=== PATIENT | female | born 1975 | race Caucasian/White ===

== ENCOUNTER 2017-01-30 17:54 | Observation (INO) | payer OTHER ==
[2017-01-30] MEDS ORDERED: MILK OF MAGNESIA PO PRN (20:21)
[2017-01-30] MEDS ORDERED: MOTRIN TAB 800 MG PO PRN (20:21)
[2017-01-30] MEDS ORDERED: MAALOX or MYLANTA PO PRN (20:21)
[2017-01-30] MEDS ORDERED: KAOPECTATE (NEW FORMULA) PO PRN (20:21)
[2017-01-30 20:47] LABS: BASOPHILS # (AUTO) 0.1 X10^3/uL (0.0-0.1); BASOPHILS % (AUTO) 1.4 % (0.2-1.0); EOSINOPHILS % (AUTO) 0.2 % (0.9-2.9); HEMATOCRIT 38.4 % (36.0-47.0); HEMOGLOBIN 13.9 g/dL (12.0-16.0); LYMPHOCYTES # (AUTO) 1.5 X10^3/uL (1.3-2.9); LYMPHOCYTES % (AUTO) 17.9 % (21.0-51.0); MEAN CORPUSCULAR HEMOGLOBIN 41.5 pg (27.0-34.0); MEAN CORPUSCULAR HGB CONC 36.2 g/dL (33.0-35.0); MEAN CORPUSCULAR VOLUME 114.7 fL (80.0-100.0); MEAN PLATELET VOLUME 8.7 fL (7.4-11.0); MONOCYTES # (AUTO) 0.9 x10^3/uL (0.3-0.8); MONOCYTES % (AUTO) 10.9 % (0.0-13.0); NEUTROPHILS # (AUTO) 5.8 x10^3/uL (2.2-4.8); NEUTROPHILS % (AUTO) 69.6 % (42.0-75.0); PLATELET COUNT 169 X10^3/uL (150.0-450.0); RED BLOOD COUNT 3.35 X10^6/uL (3.5-5.4); RED CELL DISTRIBUTION WIDTH 15.2 % (11.6-16.5); WHITE BLOOD COUNT 8.3 X10^3/uL (3.6-10.0)
[2017-01-30 21:03] LABS: ALANINE AMINOTRANSFERASE 56 Units/L (12-78); ALBUMIN 3.2 g/dL (3.4-5.0); ALKALINE PHOSPHATASE 127 Units/L (46-116); ASPARTATE AMINO TRANSFERASE 106 Units/L (15-37); BLOOD ALCOHOL 188 mg/dL (0-19.9); BLOOD UREA NITROGEN 8 mg/dL (7-18); CALCIUM 8.2 mg/dL (8.5-10.1); CARBON DIOXIDE 28.8 mmol/L (21-32); CHLORIDE 96 mmol/L (98-107); COR CA(FOR HYPOALB) 8.8 mg/dL (8.5-10.1); COR NA(FOR HYPERGLY) 136 mmol/L (136-145); GLUCOSE 122 mg/dL (65-99); MAGNESIUM 1.5 mg/dL (1.7-2.9); SODIUM 135 mmol/L (136-145); eGFR BLACK RACES > 60 (>60); eGFR NON BLACK RACES > 60 (>60)
[2017-01-30] MEDS ORDERED: POTASSIUM CHLORIDE LIQ 20 MEQ UDC PO PRN (21:21)
[2017-01-30] MEDS ORDERED: K-LYTE EFFERVESCENT PO PRN (21:21)
[2017-01-30] MEDS ORDERED: K-DUR TAB 20 MEQ PO PRN (21:21)
[2017-01-30] MEDS ORDERED: K-RIDER 10 MEQ/NS 100 ML 10 MEQ/100 ML BAG IV PRN (21:21)
[2017-01-30 21:22] LABS: PLATELET MORPHOLOGY COMMENT NORMAL (NORMAL)
[2017-01-30 21:23] LABS: ANISOCYTOSIS 1+
[2017-01-30 21:41] VITALS: BMI 26.3
[2017-01-30 22:00] LABS: BILIRUBIN,URINE NEGATIVE (NEGATIVE); BLOOD/HEMOGLOBIN,URINE NEGATIVE (NEGATIVE); GLUCOSE, URINE NEGATIVE (NEGATIVE); KETONES,URINE NEGATIVE (NEGATIVE); LEUKOCYTE ESTERASE ,URINE NEGATIVE (NEGATIVE); NITRITES,URINE NEGATIVE (NEGATIVE); PROTEIN,URINE NEGATIVE (NEGATIVE); UROBILINOGEN,URINE 1+ (NORMAL)
[2017-01-30 22:08] LABS: APPEARANCE,URINE CLEAR (CLEAR); BACTERIA,URINE 1+ /HPF (NEGATIVE); COLOR,URINE YELLOW (YELLOW); RBC,URINE NONE SEEN /HPF (NEGATIVE); SQUAMOUS EPITHELIAL CELL,UR FEW /HPF (NEGATIVE)
[2017-01-30] MEDS ORDERED: PATIENT'S HOME MEDICATION (Dicyclomine Hcl [Dicyclomine Hcl] 1 TAB) PO PRN (23:01)
[2017-01-30] MEDS ORDERED: BENTYL CAP 10 MG PO PRN (23:07)
[2017-01-30] MEDS: NS 1000 ML 1,000 ML IV SCH (23:12)
[2017-01-30] MEDS ORDERED: PHENERGAN INJ 25 MG IVP PRN (23:22)
[2017-01-30] MEDS ORDERED: ZOFRAN INJ 4 MG VIAL IVP PRN (23:22)
[2017-01-30] MEDS: AMBIEN PO SCH (23:30)
[2017-01-30] MEDS: MAGNESIUM SULFATE 50% INJ IM SCH (23:32)
[2017-01-31] MEDS: MAGNESIUM SULFATE 50% INJ IM SCH ×3 (05:02→21:30)
[2017-01-31 06:17] LABS: BASOPHILS # (AUTO) 0.1 X10^3/uL (0.0-0.1); BASOPHILS % (AUTO) 0.8 % (0.2-1.0); EOSINOPHILS # (AUTO) 0.1 x10^3/uL (0.0-0.2); EOSINOPHILS % (AUTO) 1.5 % (0.9-2.9); HEMOGLOBIN 12.9 g/dL (12.0-16.0); LYMPHOCYTES # (AUTO) 1.5 X10^3/uL (1.3-2.9); LYMPHOCYTES % (AUTO) 19.7 % (21.0-51.0); MEAN CORPUSCULAR HEMOGLOBIN 41.7 pg (27.0-34.0); MEAN CORPUSCULAR HGB CONC 35.8 g/dL (33.0-35.0); MEAN CORPUSCULAR VOLUME 116.4 fL (80.0-100.0); MEAN PLATELET VOLUME 9.1 fL (7.4-11.0); MONOCYTES # (AUTO) 0.7 x10^3/uL (0.3-0.8); MONOCYTES % (AUTO) 9.5 % (0.0-13.0); NEUTROPHILS # (AUTO) 5.2 x10^3/uL (2.2-4.8); NEUTROPHILS % (AUTO) 68.5 % (42.0-75.0); PLATELET COUNT 150 X10^3/uL (150.0-450.0); RED BLOOD COUNT 3.09 X10^6/uL (3.5-5.4); RED CELL DISTRIBUTION WIDTH 15.4 % (11.6-16.5); WHITE BLOOD COUNT 7.5 X10^3/uL (3.6-10.0)
[2017-01-31 06:43] LABS: ALANINE AMINOTRANSFERASE 50 Units/L (12-78); ALBUMIN 2.9 g/dL (3.4-5.0); ALKALINE PHOSPHATASE 116 Units/L (46-116); ASPARTATE AMINO TRANSFERASE 108 Units/L (15-37); BLOOD UREA NITROGEN 8 mg/dL (7-18); CALCIUM 8.2 mg/dL (8.5-10.1); CARBON DIOXIDE 27.5 mmol/L (21-32); CHLORIDE 101 mmol/L (98-107); COR CA(FOR HYPOALB) 9.1 mg/dL (8.5-10.1); CREATININE 0.58 mg/dL (0.55-1.02); GLUCOSE 71 mg/dL (65-99); MAGNESIUM 1.9 mg/dL (1.7-2.9); SODIUM 139 mmol/L (136-145); TOTAL PROTEIN 6.4 g/dL (6.4-8.2); eGFR BLACK RACES > 60 (>60); eGFR NON BLACK RACES > 60 (>60)
[2017-01-31 06:44] LABS: PLATELET MORPHOLOGY COMMENT NORMAL (NORMAL)
--- NOTE | 2017-01-31 08:11 | RAD ---
HISTORY: Dehydration. Study: PA and lateral chest. Comparison: None. Findings: The trachea is midline. The cardiac silhouette is unremarkable. The lungs are clear without focal infiltrate or effusion. The bony thorax is unremarkable. IMPRESSION: 1. No acute cardiopulmonary disease. Reported By:
--- NOTE | 2017-01-31 08:27 | CT ---
HISTORY: Dehydration Study: CT abdomen and pelvis without contrast Comparison: None. Technique: Multiple axial images of the abdomen and pelvis were obtained from the lung bases to the pubic symph ysis without the administration of IV contrast. Dose reduction techniques including Automated Expos ure Control (AEC) and adjustment of mA and kV were utilized. Findings: The visualized portions of the lung bases are unremarkable. Hepatomegaly and diffuse fatty infiltrat ion of the liver. There are areas of focal fatty sparing. No suspicious liver masses. The spleen, p ancreas, kidneys, and adrenal glands are unremarkable in their CT appearance. The gallbladder is unr emarkable in its CT appearance. No significant mesenteric lymphadenopathy or stranding can be obser wendy. No free fluid or free air is seen within the abdomen. The large and small bowel are collapsed , but otherwise appear normal. The appendix is surgically absent. The uterus and ovaries appear nor mal. The urinary bladder is grossly unremarkable. The bony structures are grossly intact. IMPRESSION: 1. No CT evidence of acute abdominal/pelvic pathology. 2. Other chronic findings as above. Reported By:
[2017-01-31] MEDS ORDERED: PROTONIX INJ 40 MG VIAL IVP SCH (09:00)
[2017-01-31] MEDS: NEURONTIN CAP 300 MG PO SCH ×2 (09:13→21:29)
[2017-01-31] MEDS: THIAMINE HCL INJ IM SCH (09:15)
[2017-01-31] MEDS: NS 1000 ML 1,000 ML IV SCH ×2 (09:18→21:27)
[2017-01-31] MEDS: PEPCID 20 MG IV PREMIX* 20 MG/50 ML BAG IV SCH ×2 (10:44→21:28)
[2017-01-31] MEDS: LIBRIUM PO PRN (10:49)
[2017-01-31 11:46] LABS: AMYLASE 20 Units/L (25-115); LIPASE 243 Units/L (73-393)
--- NOTE | 2017-01-31 11:53 | DR.H&P ---
H&P - History & Physical for Day of: H&P Date: 01/30/17 - Chief Complaint Chief Complaint: Near Syncope, Weakness, Nausea/Vomiting - Allergies Allergies/Adverse Reactions: Allergies Allergy/AdvReac Type Severity Reaction Status Date / Time No Known Drug Allergies Allergy Unverified 01/30/17 18:15 - History of Present Illness History of Present Illness: The patient is a 41-year-old white female who presents to the clinic with complaint of feeling of weakness with nausea and vomiting for 3 days. Patient denies diarrhea. Patient states that she feels very weak and like she is about to pass out. Patient also states that she's not been able to keep any food down. Patient does have a strong history of alcohol abuse with using a pint a day. Patient states that she over the last 3 days has taking a shot here and there and does not feel like she is having DTs. Patient does continue to complain of having increased numbness to her feet. - Past Medical History Past Medical History: Anxiety Additional Medical History: PVD - Past Surgical History Surgical History: Appendectomy, CHIEF [employer]TER[employer]CHITECT Surgery - Family History Family Medical History: Diabetes Mellitus, Cancer, [place] - Social History Does patient currently use any type of tobacco product: No Have you used tobacco products in the last 12 months: No Type of Tobacco Use: None Alcohol Use: Heavy (1 pint per day), DAILY Drug Use: None - Medications Home Medications: Amitriptyline HCl [Amitriptyline HCl] 1 - 2 tab PO HS 01/30/17 [History Confirmed 01/30/17] Dicyclomine HCl 1 tab PO QID PRN 01/30/17 [History Confirmed 01/30/17] Gabapentin [NEURONTIN CAP 300 mg *] 1 cap PO BID 01/30/17 [History Confirmed ] Phentermine HCl 37.5 mg PO DAILY 01/30/17 [History Confirmed 01/30/17] - Review of Systems Constitutional: Weakness, Malaise Eyes: No Symptoms Reported ENT: No Symptoms Reported Respiratory: No Symptoms Reported Cardiovascular: No Symptoms Reported Gastrointestinal: No Symptoms Reported Genitourinary: No Symptoms Reported Musculoskeletal: No Symptoms Reported Skin: No Symptoms Reported Neurological: Numbness (to feet) - Physical Exam Vital Signs: Temperature 97.9 F Pulse Rate [Right Brachial] 98 Pulse Rate [Bilateral Radial] 95 Respiratory Rate 20 Blood Pressure [Right Arm] 128/82 O2 Sat by Pulse Oximetry 90 Oriented: Normal Eyes: Normal Ear: Normal Nose: Normal Throat: Normal Respiratory: Clear Throughout Cardiovascular: Normal : Normal Auscultation: Bowel Sounds: Normal Palpation: Normal Tenderness: Diffuse Skin: Normal Musculoskeletal: Normal Psychiatric: Anxiety Mood Description: Depressed Affect: Depressed Speech Pattern: Clear - Assessment/Plan (1) Near syncope Status: Acute Plan: CT Head. Labs, IVFs (2) Dehydration Status: Acute Plan: Labs, IVFs (3) Nausea & vomiting Qualifiers: Vomiting type: V Vomiting Intractability: V Status: Acute Plan: Labs, IVFs, Antiemetics (4) Alcohol abuse Status: Acute Plan: Monitor for DTs. Librium. (5) Hypokalemia Status: Acute Plan: Labs, Potassium replacement. (6) Hypomagnesemia Status: Acute Plan: Labs, Magnesium replacement.
[2017-01-31] MEDS ORDERED: LEVSIN/MAALOX/LIDOC VISC PO PRN (16:29)
--- NOTE | 2017-01-31 16:32 | PCM.PROG ---
Progress Note - Progress Note for Day of Date: 01/31/17 - Subjective Subjective: patient is a 41-year-old white female who was admitted one day ago with alcohol-induced gastritis abdominal pain and vomiting and diarrhea. Patient was noted to be dehydrated on admission with hypokalemia and hyponatremia. Patient started on PPI therapy and IV hydration. Patient had a CT scan of abdomen and pelvis on admission. Plan to continue IV hydration, obtain amylase and lipase, continue magnesium replacement. Discussed need for future EGD. Occult stool ordered and will start GI cocktail when necessary - Past Medical Family Social History Past Med/Fam/Surg Hx: No changes since H&P Allergies: Allergies No Known Drug Allergies Allergy (Unverified 01/30/17 18:15) - Review of Systems ROS: No change since H&P - Vital Signs and I&O's Vital Signs: Temperature 97.9 F Pulse Rate [Left Brachial] 64 Pulse Rate [Right Brachial] 100 Pulse Rate [Bilateral Radial] 95 Respiratory Rate 19 Blood Pressure [Left Arm] 121/81 Blood Pressure [Right Arm] 131/85 O2 Sat by Pulse Oximetry 97 Intake and Output: Intake & Output 01/29/17 01/30/17 01/31/17 02/01/17 11:59 11:59 11:59 11:59 Intake Total 330 600 Balance 330 600 - Physical Exam Oriented: Normal Eyes: Normal Ear: Normal Nose: Normal Throat: Normal Respiratory: Wheezes (mild lower exp wheezes) Cardiovascular: Normal : Normal Auscultation: Bowel Sounds: Normal Tenderness: RUQ, LUQ, Epigastric Skin: Normal Musculoskeletal: Normal Psychiatric: Anxiety Mood Description: Depressed Affect: Depressed Speech Pattern: Clear - Laboratory and Diagnostics Result Diagrams: 01/31/17 03:30 01/31/17 03:30 Labs: Laboratory WBC 7.5 X10^3/uL (3.6-10.0) 01/31/17 03:30 RBC 3.09 X10^6/uL (3.5-5.4) L 01/31/17 03:30 Hgb 12.9 g/dL (12.0-16.0) 01/31/17 03:30 Hct 36.0 % (36.0-47.0) 01/31/17 03:30 MCV 116.4 fL (80.0-100.0) H 01/31/17 03:30 MCH 41.7 pg (27.0-34.0) H 01/31/17 03:30 MCHC 35.8 g/dL (33.0-35.0) H 01/31/17 03:30 RDW 15.4 % (11.6-16.5) 01/31/17 03:30 Plt Count 150 X10^3/uL (150.0-450.0) 01/31/17 03:30 Plt Count Comment Adequate (ADEQUATE) 01/31/17 03:30 MPV 9.1 fL (7.4-11.0) 01/31/17 03:30 Neut % 68.5 % (42.0-75.0) 01/31/17 03:30 Lymph % 19.7 % (21.0-51.0) L 01/31/17 03:30 [place] % 9.5 % (0.0-13.0) 01/31/17 03:30 Eos % 1.5 % (0.9-2.9) 01/31/17 03:30 Baso % 0.8 % (0.2-1.0) 01/31/17 03:30 Neut # 5.2 x10^3/uL (2.2-4.8) H 01/31/17 03:30 Lymph # 1.5 X10^3/uL (1.3-2.9) 01/31/17 03:30 [place] # 0.7 x10^3/uL (0.3-0.8) 01/31/17 03:30 Eos # 0.1 x10^3/uL (0.0-0.2) 01/31/17 03:30 Baso # 0.1 X10^3/uL (0.0-0.1) 01/31/17 03:30 Absolute Nucleated RBC 0.1 /100WBC 01/31/17 03:30 Plt Morphology Comment Normal (NORMAL) 01/31/17 03:30 RBC Morphology Abnormal (NORMAL) A 01/31/17 03:30 Anisocytosis 1+ A 01/30/17 20:30 Macrocytosis 3+ A 01/31/17 03:30 Sodium 139 mmol/L (136-145) 01/31/17 03:30 Corrected Sodium TNP 01/31/17 03:30 Potassium 3.9 mmol/L (3.5-5.1) 01/31/17 03:30 Chloride 101 mmol/L (98-107) 01/31/17 03:30 Carbon Dioxide 27.5 mmol/L (21-32) 01/31/17 03:30 BUN 8 mg/dL (7-18) 01/31/17 03:30 Creatinine 0.58 mg/dL (0.55-1.02) 01/31/17 03:30 Est GFR (MDRD) Af Amer > 60 (>60) 01/31/17 03:30 Est GFR (MDRD) Non-Af > 60 (>60) 01/31/17 03:30 Glucose 71 mg/dL (65-99) 01/31/17 03:30 Calcium 8.2 mg/dL (8.5-10.1) L 01/31/17 03:30 Corrected Calcium 9.1 mg/dL (8.5-10.1) 01/31/17 03:30 Magnesium 1.9 mg/dL (1.7-2.9) 01/31/17 03:30 Total Bilirubin 3.60 mg/dL (0.2-1.0) H 01/31/17 03:30 AST 108 Units/L (15-37) H 01/31/17 03:30 ALT 50 Units/L (12-78) 01/31/17 03:30 Alkaline Phosphatase 116 Units/L (46-116) 01/31/17 03:30 Total Protein 6.4 g/dL (6.4-8.2) 01/31/17 03:30 Albumin 2.9 g/dL (3.4-5.0) L 01/31/17 03:30 Globulin 3.5 g/dL (2.5-4.5) 01/31/17 03:30 Albumin/Globulin Ratio 0.8 Ratio (1.1-2.1) L 01/31/17 03:30 Amylase 20 Units/L (25-115) L 01/31/17 11:05 Lipase 243 Units/L (73-393) 01/31/17 11:05 Specimen Type Clean catch urine 01/30/17 21:47 Urine Color Yellow (YELLOW) 01/30/17 21:47 Urine Appearance Clear (CLEAR) 01/30/17 21:47 Urine pH 7.0 (5.0 - 8.0) 01/30/17 21:47 Ur Specific [place] 1.015 (1.000-1.030) 01/30/17 21:47 Urine Protein Negative (NEGATIVE) 01/30/17 21:47 Urine Glucose (UA) Negative (NEGATIVE) 01/30/17 21:47 Urine Ketones Negative (NEGATIVE) 01/30/17 21:47 Urine Occult Blood Negative (NEGATIVE) 01/30/17 21:47 Urine Nitrite Negative (NEGATIVE) 01/30/17 21:47 Urine Bilirubin Negative (NEGATIVE) 01/30/17 21:47 Urine Urobilinogen 1+ (NORMAL) 01/30/17 21:47 Ur Leukocyte Esterase Negative (NEGATIVE) 01/30/17 21:47 Urine RBC None seen /HPF (NEGATIVE) 01/30/17 21:47 Urine WBC 0-2 /HPF (NEGATIVE) 01/30/17 21:47 Ur Squamous Epith Cells Few /HPF (NEGATIVE) 01/30/17 21:47 Urine Bacteria 1+ /HPF (NEGATIVE) 01/30/17 21:47 Ur Culture Indicated? No/not indicated 01/30/17 21:47 Urine Opiates Screen Negative (NEG=<300) 01/30/17 21:47 Urine Methadone Screen Negative (NEG=<300) 01/30/17 21:47 Ur Barbiturates Screen Negative (NEG=<200) 01/30/17 21:47 Ur Phencyclidine Scrn Negative (NEG=<25) 01/30/17 21:47 Ur Amphetamines Screen Negative (NEG=<1000) 01/30/17 21:47 U Benzodiazepines Scrn Negative (NEG=<200) 01/30/17 21:47 Urine Cocaine Screen Negative (NEG=<300) 01/30/17 21:47 U Marijuana (THC) Screen Negative (NEG=<50) 01/30/17 21:47 Ethyl Alcohol mg/dL 188 mg/dL (0-19.9) H 01/30/17 20:30 - Plan (1) Alcohol abuse Status: Acute Plan: Monitor for DTs. Librium. (2) Dehydration Status: Acute Plan: Labs, IVFs (3) Hypokalemia Status: Acute Plan: Labs, Potassium replacement. (4) Hypomagnesemia Status: Acute Plan: Labs, Magnesium replacement. (5) Nausea & vomiting Status: Acute Qualifiers: Vomiting type: V Vomiting Intractability: V Plan: Labs, IVFs, Antiemetics (6) Gastritis Status: Acute Qualifiers: Gastritis type: G Chronicity: C Gastritis bleeding: G Plan: CONTIUE PPI THERAPY, IV HYDRATION. PAIN CONTROL
[2017-01-31] MEDS ORDERED: ELAVIL PO SCH (21:00)
[2017-01-31] MEDS: AMBIEN PO SCH (21:33)
[2017-02-01] MEDS: MAGNESIUM SULFATE 50% INJ IM SCH ×2 (05:21→13:31)
[2017-02-01 06:13] LABS: BASOPHILS # (AUTO) 0.1 X10^3/uL (0.0-0.1); BASOPHILS % (AUTO) 1.3 % (0.2-1.0); EOSINOPHILS # (AUTO) 0.1 x10^3/uL (0.0-0.2); EOSINOPHILS % (AUTO) 1.8 % (0.9-2.9); HEMATOCRIT 35.5 % (36.0-47.0); HEMOGLOBIN 12.7 g/dL (12.0-16.0); LYMPHOCYTES # (AUTO) 1.3 X10^3/uL (1.3-2.9); LYMPHOCYTES % (AUTO) 21.9 % (21.0-51.0); MEAN CORPUSCULAR HEMOGLOBIN 41.9 pg (27.0-34.0); MEAN CORPUSCULAR HGB CONC 35.8 g/dL (33.0-35.0); MONOCYTES # (AUTO) 0.5 x10^3/uL (0.3-0.8); MONOCYTES % (AUTO) 9.2 % (0.0-13.0); NEUTROPHILS # (AUTO) 3.9 x10^3/uL (2.2-4.8); NEUTROPHILS % (AUTO) 65.8 % (42.0-75.0); PLATELET COUNT 150 X10^3/uL (150.0-450.0); RED BLOOD COUNT 3.03 X10^6/uL (3.5-5.4); RED CELL DISTRIBUTION WIDTH 15.5 % (11.6-16.5); WHITE BLOOD COUNT 5.9 X10^3/uL (3.6-10.0)
[2017-02-01 06:21] LABS: ALANINE AMINOTRANSFERASE 50 Units/L (12-78); ALBUMIN 2.8 g/dL (3.4-5.0); ALKALINE PHOSPHATASE 114 Units/L (46-116); ASPARTATE AMINO TRANSFERASE 104 Units/L (15-37); BLOOD UREA NITROGEN 9 mg/dL (7-18); CALCIUM 7.8 mg/dL (8.5-10.1); CARBON DIOXIDE 28.8 mmol/L (21-32); CHLORIDE 104 mmol/L (98-107); COR CA(FOR HYPOALB) 8.8 mg/dL (8.5-10.1); CREATININE 0.65 mg/dL (0.55-1.02); GLUCOSE 77 mg/dL (65-99); SODIUM 140 mmol/L (136-145); TOTAL PROTEIN 6.2 g/dL (6.4-8.2); eGFR BLACK RACES > 60 (>60); eGFR NON BLACK RACES > 60 (>60)
[2017-02-01 06:50] LABS: HYPOCHROMASIA SLIGHT; PLATELET MORPHOLOGY COMMENT NORMAL (NORMAL)
[2017-02-01] MEDS: NEURONTIN CAP 300 MG PO SCH (08:15)
[2017-02-01] MEDS: PEPCID 20 MG IV PREMIX* 20 MG/50 ML BAG IV SCH (08:15)
[2017-02-01] MEDS: THIAMINE HCL INJ IM SCH (08:16)
[2017-02-01] MEDS: LIBRIUM PO PRN (13:25)
[2017-02-01] MEDS: NS 1000 ML 1,000 ML IV SCH (13:25)
[2017-02-01 15:16] VITALS: BP 104/69
== END 2017-02-01 16:15 | disposition home or self-care (01) ==
LOC: UNDOADMOB 17:54 → MED/SURG 17:54
PROVIDERS: ADMIT Internal Medicine; ATTEND Internal Medicine
DX: R55 Syncope and collapse (principal); E86.0 Dehydration; R11.2 Nausea with vomiting, unspecified; F10.120 Alcohol abuse with intoxication, uncomplicated; R53.1 Weakness; R20.0 Anesthesia of skin; E87.6 Hypokalemia; E83.42 Hypomagnesemia; R06.02 Shortness of breath; K29.20 Alcoholic gastritis without bleeding; E87.1 Hypo-osmolality and hyponatremia
CPT/HCPCS: 36415; 71020; 74176; 80053; 80307; 80320; 81001; 82150; 83690; 83735; 84132; 85025; 93005; 93010; A4216; A4222; S0028; G0378; G0434; G6040; J3411; J3475

== ENCOUNTER 2018-06-29 13:10 | Inpatient (IN) ==
[2018-06-29] MEDS ORDERED: ZOFRAN INJ 4 MG VIAL IVP PRN (14:15)
[2018-06-29] MEDS ORDERED: PEPCID 20 MG IV PREMIX* 20 MG/50 ML BAG IV PRN (14:15)
[2018-06-29] MEDS: NS 1000 ML 1,000 ML IV SCH (14:51)
[2018-06-29] MEDS: MORPHINE SULFATE INJ 2 MG INJ IVP PRN ×2 (14:52→18:44)
[2018-06-29 14:58] LABS: BASOPHILS # (AUTO) 0.1 X10^3/uL (0.0-0.1); BASOPHILS % (AUTO) 0.8 % (0.2-1.0); EOSINOPHILS # (AUTO) 0.1 x10^3/uL (0.0-0.2); EOSINOPHILS % (AUTO) 0.7 % (0.9-2.9); HEMATOCRIT 43.6 % (36.0-47.0); HEMOGLOBIN 15.5 g/dL (12.0-16.0); LYMPHOCYTES # (AUTO) 1.9 X10^3/uL (1.3-2.9); LYMPHOCYTES % (AUTO) 16.1 % (21.0-51.0); MEAN CORPUSCULAR HEMOGLOBIN 35.7 pg (27.0-34.0); MEAN CORPUSCULAR HGB CONC 35.6 g/dL (33.0-35.0); MEAN CORPUSCULAR VOLUME 100.2 fL (80.0-100.0); MEAN PLATELET VOLUME 8.8 fL (7.4-11.0); NEUTROPHILS # (AUTO) 8.6 x10^3/uL (2.2-4.8); NEUTROPHILS % (AUTO) 73.4 % (42.0-75.0); PLATELET COUNT 214 X10^3/uL (150.0-450.0); RED BLOOD COUNT 4.35 X10^6/uL (3.5-5.4); RED CELL DISTRIBUTION WIDTH 14.5 % (11.6-16.5); WHITE BLOOD COUNT 11.7 X10^3/uL (3.6-10.0)
[2018-06-29 15:19] LABS: ALANINE AMINOTRANSFERASE 41 Units/L (12-78); ALBUMIN 3.4 g/dL (3.4-5.0); ALKALINE PHOSPHATASE 97 Units/L (46-116); AMYLASE 20 Units/L (25-115); ASPARTATE AMINO TRANSFERASE 27 Units/L (15-37); BLOOD UREA NITROGEN 6 mg/dL (7-18); CALCIUM 8.7 mg/dL (8.5-10.1); CARBON DIOXIDE 26.6 mmol/L (21-32); CHLORIDE 94 mmol/L (98-107); CREATININE 0.76 mg/dL (0.55-1.02); LIPASE 109 Units/L (73-393); SODIUM 132 mmol/L (136-145); TOTAL PROTEIN 7.6 g/dL (6.4-8.2); eGFR NON BLACK RACES > 60 (>60)
[2018-06-29 16:17] LABS: BILIRUBIN,URINE NEGATIVE (NEGATIVE); BLOOD/HEMOGLOBIN,URINE NEGATIVE (NEGATIVE); GLUCOSE, URINE NEGATIVE (NEGATIVE); KETONES,URINE 1+ (NEGATIVE); LEUKOCYTE ESTERASE ,URINE NEGATIVE (NEGATIVE); NITRITES,URINE NEGATIVE (NEGATIVE); PROTEIN,URINE NEGATIVE (NEGATIVE); UROBILINOGEN,URINE NORMAL (NORMAL)
[2018-06-29 16:21] LABS: APPEARANCE,URINE CLEAR (CLEAR); COLOR,URINE YELLOW (YELLOW)
[2018-06-29 16:41] VITALS: BMI 26.4
[2018-06-29] MEDS ORDERED: DILAUDID INJ IVP ONE (18:00)
--- NOTE | 2018-06-29 21:49 | CT ---
HISTORY: Right upper quadrant pain Study: CT abdomen and pelvis without contrast Comparison: None Technique: Multiple axial images of the abdomen and pelvis were obtained without IV contrast. Dose reduction techniques including Automated Exposure Control (AEC) and adjustment of mA and kV were utilized. Findings: Please note evaluation is significantly limited without use of IV contrast. There is bibasilar atelectasis. The unenhanced spleen, liver and adrenal glands are unremarkable. No renal calculi or obstructive uropathy. The gallbladder is distended with multiple calcified gallstones and probable sludge. There is pericholecystic inflammatory stranding present. There is suggestion of gallbladder wall thickening but evaluation is limited by lack of IV contrast. The findings are concerning for cholecystitis. There is mild stranding also seen at the pancreaticoduodenal groove therefore the possibility pancreatitis is not excluded. No free intraperitoneal air. No evidence of intestinal obstruction or inflammation. Appendix is removed. No ascites. The soft tissues and osseous structures are unremarkable. Limited evaluation of vascular structures due to lack of contrast. No pathologically enlarged lymph nodes are identified. There is suggestion of a right ovarian cyst measuring 2.8 cm. Uterine fundus is mildly enlarged that could be due to underlying fibroid. IMPRESSION: 1. The gallbladder is distended with multiple calcified gallstones and probable sludge. There is pericholecystic inflammatory stranding present. There is suggestion of gallbladder wall thickening but evaluation is limited by lack of IV contrast. The findings are concerning for cholecystitis. There is mild stranding also seen at the pancreaticoduodenal groove therefore the possibility of concomitant pancreatitis is not excluded. Reported By:
[2018-06-29] MEDS ORDERED: NORCO 5/325 MG TAB PO PRN (23:07)
[2018-06-29] MEDS ORDERED: NORCO 5/325 MG TAB ONE (23:08)
[2018-06-30] MEDS: NS 1000 ML 1,000 ML IV SCH ×3 (02:00→22:17)
[2018-06-30 05:22] LABS: BASOPHILS # (AUTO) 0.1 X10^3/uL (0.0-0.1); BASOPHILS % (AUTO) 0.8 % (0.2-1.0); EOSINOPHILS # (AUTO) 0.1 x10^3/uL (0.0-0.2); EOSINOPHILS % (AUTO) 1.4 % (0.9-2.9); HEMATOCRIT 38.8 % (36.0-47.0); HEMOGLOBIN 13.7 g/dL (12.0-16.0); LYMPHOCYTES # (AUTO) 1.9 X10^3/uL (1.3-2.9); MEAN CORPUSCULAR HEMOGLOBIN 35.3 pg (27.0-34.0); MEAN CORPUSCULAR HGB CONC 35.3 g/dL (33.0-35.0); MEAN PLATELET VOLUME 8.6 fL (7.4-11.0); MONOCYTES # (AUTO) 1.2 x10^3/uL (0.3-0.8); MONOCYTES % (AUTO) 12.5 % (0.0-13.0); NEUTROPHILS # (AUTO) 5.9 x10^3/uL (2.2-4.8); NEUTROPHILS % (AUTO) 64.3 % (42.0-75.0); PLATELET COUNT 183 X10^3/uL (150.0-450.0); RED BLOOD COUNT 3.88 X10^6/uL (3.5-5.4); RED CELL DISTRIBUTION WIDTH 14.1 % (11.6-16.5); WHITE BLOOD COUNT 9.2 X10^3/uL (3.6-10.0)
[2018-06-30 05:37] LABS: ALANINE AMINOTRANSFERASE 33 Units/L (12-78); ALBUMIN 2.8 g/dL (3.4-5.0); ALKALINE PHOSPHATASE 79 Units/L (46-116); ASPARTATE AMINO TRANSFERASE 21 Units/L (15-37); BLOOD UREA NITROGEN 6 mg/dL (7-18); CALCIUM 8.2 mg/dL (8.5-10.1); CARBON DIOXIDE 23.9 mmol/L (21-32); CHLORIDE 100 mmol/L (98-107); COR CA(FOR HYPOALB) 9.2 mg/dL (8.5-10.1); CREATININE 0.54 mg/dL (0.55-1.02); SODIUM 135 mmol/L (136-145); TOTAL PROTEIN 6.7 g/dL (6.4-8.2); eGFR NON BLACK RACES > 60 (>60)
--- NOTE | 2018-06-30 08:22 | DR.H&P ---
H&P - History & Physical for Day of: H&P Date: 06/29/18 - Chief Complaint Chief Complaint: RUQ Abd pain - History of Present Illness History of Present Illness: The patient is a 43-year-old white female who presents to the office with complaint right upper quadrant abdominal pain. Patient complains of nausea and vomiting. Has food intolerance. Patient does state pain is progressively getting worse. 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 Patient was transferred from [facility] to [place] for workup. Patient subsequently had improvement of liver function test. Bilirubin did reach as elevated at 16 during at episode. States she did have gallstones on previous work-up. Patient admitted due to pain. - Past Medical History Past Medical History: Anxiety, Liver Disease Additional Medical History: PVD - Past Surgical History Surgical History: Appendectomy, - Family History Family Medical History: Cancer, [place] - Social History Does patient currently use any type of tobacco product: Yes (Black and Milds 1- 2/day) Have you used tobacco products in the last 12 months: Yes Type of Tobacco Use: Cigarettes Alcohol Use: None Drug Use: None - Medications Home Medications: No Known Drug Allergies Allergy (Unverified 01/30/17 18:15) CONTINUE taking the following medications cetirizine 10 mg PO DAILY 06/29/18 [History] furosemide 20 mg PO DAILY 06/29/18 [History] lorazepam 0.5 mg PO DAILY PRN 06/29/18 [History] omega [id number] oil [Fish Oil] 1,000 mg PO DAILY 06/29/18 [History] promethazine 25 mg PO Q6H PRN 06/29/18 [History] ranitidine HCl 150 mg PO BID 06/29/18 [History] spironolactone 50 mg PO DAILY 06/29/18 [History] - Review of Systems Constitutional: Weakness, Malaise Eyes: No Symptoms Reported ENT: No Symptoms Reported Respiratory: No Symptoms Reported Cardiovascular: No Symptoms Reported Gastrointestinal: Nausea, Vomiting, Abdominal Pain Genitourinary: No Symptoms Reported Musculoskeletal: No Symptoms Reported Skin: No Symptoms Reported Neurological: No Symptoms Reported - Physical Exam Vital Signs: Temperature 98.3 F Pulse Rate [Right Brachial] 90 Respiratory Rate 20 Blood Pressure [Left Arm] 115/65 Blood Pressure [Right Arm] 135/82 Blood Pressure 104/69 O2 Sat by Pulse Oximetry 94 Oriented: Normal Eyes: Normal Ear: Normal Nose: Normal Throat: Normal Respiratory: Clear Throughout Cardiovascular: Normal : Normal Auscultation: Bowel Sounds: Normal Palpation: Normal Tenderness: RUQ Skin: Normal Musculoskeletal: Normal Psychiatric: Normal Mood Description: Calm Affect: Normal Speech Pattern: Clear - Assessment/Plan (1) RUQ abdominal pain Status: Acute Plan: CT abd, Hidascan, Labs (2) Cholecystitis Status: Acute Plan: Hidascanor (3) Nausea & vomiting Status: Acute Plan: Zofran and Phenergan - Allergies Allergies/Adverse Reactions: Allergies Allergy/AdvReac Type Severity Reaction Status Date / Time No Known Drug Allergies Allergy Unverified 01/30/17 18:15
[2018-06-30] MEDS ORDERED: LIBRIUM PO PRN (08:25)
[2018-06-30] MEDS ORDERED: PHENERGAN TAB 25 MG PO PRN (08:25)
[2018-06-30] MEDS ORDERED: LOVAZA PO SCH (09:00)
[2018-06-30] MEDS ORDERED: DEMEROL INJ IVP ONE (09:00)
[2018-06-30] MEDS ORDERED: DEMEROL INJ IVP PRN (09:55)
--- NOTE | 2018-06-30 10:17 | US ---
History: Right upper quadrant pain Study: Ultrasound of the right upper quadrant of the abdomen Comparison: CT scan of the abdomen performed yesterday Findings: There are gallstones in the neck of the gallbladder with a least 1 stone measuring a cm in diameter. There is gallbladder wall thickening to 6.6 mm. There is no free fluid. The liver is normal in size without mass. There is appropriate flow in the hepatic and portal veins. The IVC is patent. The pancreas is unremarkable. The right kidney measures 10.7 cm sagittal length with cortical thickness of 1.9 cm. There is no right renal mass or hydronephrosis. Impression: Cholelithiasis and gallbladder wall thickening is compatible with cholecystitis Reported By:
[2018-06-30] MEDS: LASIX PO SCH (10:31)
[2018-06-30] MEDS: ALDACTONE TAB 25 MG PO SCH (10:31)
[2018-06-30] MEDS: ZyrTEC TAB 10 MG PO SCH (10:31)
[2018-06-30] MEDS: LOVAZA PO SCH (10:42)
--- NOTE | 2018-06-30 13:35 | MRI ---
MRI OF THE ABDOMEN WITHOUT IV CONTRAST - MRCP PROTOCOL Clinical indication: Intractable right upper quadrant abdominal pain. Procedure: Multiplanar multi sequence MRI of the abdomen were obtained without the administration of intravenous contrast according to standard departmental MRCP protocol. Comparisons: Ultrasound 06/30/2018, CT 06/29/2018. Both of these examinations were highly concerning for cholecystitis. Findings: No significant ascites. Spleen mildly. Gallbladder is thick-walled and there is gallbladder sludge, gallstones and trace pericholecystic.No filling defects within the common bile duct. No ductal dilatation. No large pancreatic masses. Adrenal glands are grossly normal. Kidneys demonstrate normal cortical medullary differentiation. No hydronephrosis. Visualized bowel is grossly unremarkable. No suspicious lymph nodes. Impression: 1. Findings which are again concerning for acute cholecystitis. No obstructing stones are identified. MRCP is a focused examination designed specifically to evaluate the bile ducts. Ability to evaluate other organs and detection of parenchymal lesions and masses, including many etiologies for duct dilatation such as pancreatic head/ampullary masses, is limited. Reported By:
[2018-06-30] MEDS ORDERED: QUELICIN (OR ANECTINE) ONE (15:26)
[2018-06-30] MEDS ORDERED: DIPRIVAN VIAL ONE (15:26)
[2018-06-30] MEDS ORDERED: NEOSTIGMINE INJ ONE (15:26)
[2018-06-30] MEDS ORDERED: ZOFRAN INJ 4 MG VIAL ONE (15:26)
[2018-06-30] MEDS ORDERED: VERSED ONE (15:26)
[2018-06-30] MEDS ORDERED: TORADOL 30 MG VIAL ONE (15:26)
[2018-06-30] MEDS ORDERED: SUPRANE IN ONE (15:26)
[2018-06-30] MEDS ORDERED: ROBINUL ONE (15:26)
[2018-06-30] MEDS ORDERED: NORCURON INJ 10 MG VIAL ONE (15:26)
[2018-06-30] MEDS: DILAUDID INJ IVP PRN ×2 (19:05→23:27)
[2018-07-01] MEDS: DILAUDID INJ IVP PRN ×9 (03:18→21:40)
[2018-07-01 05:22] LABS: BASOPHILS # (AUTO) 0.1 X10^3/uL (0.0-0.1); BASOPHILS % (AUTO) 0.9 % (0.2-1.0); EOSINOPHILS # (AUTO) 0.2 x10^3/uL (0.0-0.2); EOSINOPHILS % (AUTO) 1.9 % (0.9-2.9); HEMATOCRIT 37.4 % (36.0-47.0); HEMOGLOBIN 13.5 g/dL (12.0-16.0); LYMPHOCYTES # (AUTO) 1.7 X10^3/uL (1.3-2.9); LYMPHOCYTES % (AUTO) 18.4 % (21.0-51.0); MEAN CORPUSCULAR HEMOGLOBIN 35.7 pg (27.0-34.0); MEAN CORPUSCULAR HGB CONC 36.1 g/dL (33.0-35.0); MEAN CORPUSCULAR VOLUME 98.9 fL (80.0-100.0); MEAN PLATELET VOLUME 8.7 fL (7.4-11.0); MONOCYTES % (AUTO) 11.1 % (0.0-13.0); NEUTROPHILS # (AUTO) 6.2 x10^3/uL (2.2-4.8); NEUTROPHILS % (AUTO) 67.7 % (42.0-75.0); PLATELET COUNT 215 X10^3/uL (150.0-450.0); RED BLOOD COUNT 3.78 X10^6/uL (3.5-5.4); WHITE BLOOD COUNT 9.1 X10^3/uL (3.6-10.0)
[2018-07-01 05:37] LABS: ALANINE AMINOTRANSFERASE 31 Units/L (12-78); ALBUMIN 2.7 g/dL (3.4-5.0); ALKALINE PHOSPHATASE 82 Units/L (46-116); ASPARTATE AMINO TRANSFERASE 23 Units/L (15-37); BLOOD UREA NITROGEN 5 mg/dL (7-18); CALCIUM 7.8 mg/dL (8.5-10.1); CARBON DIOXIDE 24.7 mmol/L (21-32); CHLORIDE 102 mmol/L (98-107); COR CA(FOR HYPOALB) 8.8 mg/dL (8.5-10.1); CREATININE 0.48 mg/dL (0.55-1.02); SODIUM 138 mmol/L (136-145); TOTAL PROTEIN 6.7 g/dL (6.4-8.2); eGFR NON BLACK RACES > 60 (>60)
[2018-07-01] MEDS: NS 1000 ML 1,000 ML IV SCH ×3 (06:35→17:56)
[2018-07-01] MEDS: ATIVAN TAB 0.5 MG PO PRN (07:29)
[2018-07-01] MEDS: ALDACTONE TAB 25 MG PO SCH (08:17)
[2018-07-01] MEDS: LOVAZA PO SCH (08:17)
[2018-07-01] MEDS: LASIX PO SCH (08:17)
[2018-07-01] MEDS: ZyrTEC TAB 10 MG PO SCH (08:18)
[2018-07-01] MEDS ORDERED: LR 1000 ML IV 1,000 ML IV ONE ×2 (08:39→10:45)
[2018-07-01] MEDS ORDERED: ANCEF VIAL 1 GRAM ONE (08:40)
[2018-07-01] MEDS ORDERED: FENTANYL INJ 250 mcg ONE (09:03)
[2018-07-01] MEDS ORDERED: NS 1000 ML 1,000 ML ONE ×2 (09:06→10:45)
[2018-07-01] MEDS ORDERED: NS IRRIGATION 3000 ML ONE (09:42)
[2018-07-01] MEDS ORDERED: NEOSPORIN OINT ONE (10:48)
[2018-07-01] MEDS ORDERED: DILAUDID INJ ONE ×2 (10:57→11:18)
[2018-07-01] MEDS ORDERED: REGLAN INJ 10 MG VIAL IVP PRN (10:59)
[2018-07-01] MEDS ORDERED: PHENERGAN INJ 25 MG IVP PRN (10:59)
[2018-07-01] MEDS ORDERED: ZOFRAN INJ 4 MG VIAL IVP PRN (10:59)
[2018-07-01] MEDS ORDERED: BENADRYL INJ 50 MG VIAL IVP PRN (10:59)
--- NOTE | 2018-07-01 11:16 | OR.GENERIC ---
Post-Op Note Generic - Post-Op Note Operative Report: diagnostic laparoscopy revealed acute calculus cholecystitis with free fluid and exudate. 2- Hepatomegaly and Fatty liver 3 very friable tissue with bleeding tendency . left SAMMI drain . EBL 159 to 200 cc on IV ATB and clear liquid .
[2018-07-01] MEDS: PROTONIX INJ 40 MG VIAL IVP SCH (12:27)
[2018-07-01] MEDS ORDERED: XYLOCAINE 2 % (PLAIN) ONE (15:27)
[2018-07-01] MEDS ORDERED: DIPRIVAN VIAL ONE (15:27)
[2018-07-01] MEDS ORDERED: NEOSTIGMINE INJ ONE (15:27)
[2018-07-01] MEDS ORDERED: ROBINUL ONE (15:27)
[2018-07-01] MEDS ORDERED: NORCURON INJ 10 MG VIAL ONE (15:27)
[2018-07-01] MEDS ORDERED: SUPRANE IN ONE (15:27)
[2018-07-01] MEDS ORDERED: VERSED ONE (15:27)
[2018-07-01] MEDS ORDERED: ZOFRAN INJ 4 MG VIAL ONE (15:27)
[2018-07-01] MEDS ORDERED: QUELICIN (OR ANECTINE) ONE (15:27)
--- NOTE | 2018-07-01 16:27 | PCM.PROG ---
Progress Note - Progress Note for Day of Date of Exam: 06/30/18 - Subjective Subjective: 43 WF DIRECT ADMIT FROM DR SALVATORE CALLOWAY OFFICE WITH RUQ PAIN, N/V. PT HAD CT ABD/PELVIS REVEALED findings are concerning for cholecystitis, WITH GALLSTONES PRESENT. PT HAD GB US, AND MRCP ORDERED FOR THIS AM. PT CONTINUES WITH PAIN, NPO, DENIES DIARRHEA. WILL CONSULT DR LANCASTER FOLLOWING MRCP. - Past Medical Family Social History Past Med/Fam/Surg Hx: No changes since H&P Allergies: Allergies No Known Drug Allergies Allergy (Unverified 01/30/17 18:15) - Review of Systems ROS: No change since H&P - Vital Signs and I&O's Vital Signs: Temperature 98.8 F Pulse Rate [Right Brachial] 107 Pulse Rate 103 Respiratory Rate 20 Blood Pressure [Left Arm] 97/69 Blood Pressure [Right Arm] 119/76 Blood Pressure 121/77 O2 Sat by Pulse Oximetry 96 Intake and Output: Intake & Output 06/29/18 06/30/18 07/01/18 07/02/18 11:59 11:59 11:59 11:59 Intake Total 1790 / 1790 5891 / 5891 120 / 120 Output Total 2800 / 2800 Balance 1790 / 1790 3091 / 3091 120 / 120 - Physical Exam Oriented: Normal Eyes: Normal Ear: Normal Nose: Normal Throat: Normal Respiratory: Diminished Cardiovascular: Normal : Normal Auscultation: Bowel Sounds: Normal Tenderness: RUQ Skin: Normal Musculoskeletal: Normal Psychiatric: Normal Mood Description: Calm Affect: Normal Speech Pattern: Clear, Appropriate - Laboratory and Diagnostics Result Diagrams: 07/01/18 04:06 07/01/18 04:06 Labs: Laboratory WBC 9.1 X10^3/uL (3.6-10.0) 07/01/18 04:06 RBC 3.78 X10^6/uL (3.5-5.4) 07/01/18 04:06 Hgb 13.5 g/dL (12.0-16.0) 07/01/18 04:06 Hct 37.4 % (36.0-47.0) 07/01/18 04:06 MCV 98.9 fL (80.0-100.0) 07/01/18 04:06 MCH 35.7 pg (27.0-34.0) H 07/01/18 04:06 MCHC 36.1 g/dL (33.0-35.0) H 07/01/18 04:06 RDW 14.0 % (11.6-16.5) 07/01/18 04:06 Plt Count 215 X10^3/uL (150.0-450.0) 07/01/18 04:06 MPV 8.7 fL (7.4-11.0) 07/01/18 04:06 Neut % (Auto) 67.7 % (42.0-75.0) 07/01/18 04:06 Lymph % (Auto) 18.4 % (21.0-51.0) L 07/01/18 04:06 [place] % (Auto) 11.1 % (0.0-13.0) 07/01/18 04:06 Eos % (Auto) 1.9 % (0.9-2.9) 07/01/18 04:06 Baso % (Auto) 0.9 % (0.2-1.0) 07/01/18 04:06 Neut # (Auto) 6.2 x10^3/uL (2.2-4.8) H 07/01/18 04:06 Lymph # (Auto) 1.7 X10^3/uL (1.3-2.9) 07/01/18 04:06 [place] # (Auto) 1.0 x10^3/uL (0.3-0.8) H 07/01/18 04:06 Eos # (Auto) 0.2 x10^3/uL (0.0-0.2) 07/01/18 04:06 Baso # (Auto) 0.1 X10^3/uL (0.0-0.1) 07/01/18 04:06 Absolute Nucleated RBC 0.1 /100WBC 07/01/18 04:06 INR Target Range - 06/29/18 14:32 INR 1.18 (0.8-1.3) 06/29/18 14:32 APTT 38.5 SECONDS (22.9-36.5) H 06/29/18 14:32 PTT Comment - 06/29/18 14:32 Sodium 138 mmol/L (136-145) 07/01/18 04:06 Corrected Sodium TNP 07/01/18 04:06 Potassium 3.8 mmol/L (3.5-5.1) 07/01/18 04:06 Chloride 102 mmol/L (98-107) 07/01/18 04:06 Carbon Dioxide 24.7 mmol/L (21-32) 07/01/18 04:06 BUN 5 mg/dL (7-18) L 07/01/18 04:06 Creatinine 0.48 mg/dL (0.55-1.02) L 07/01/18 04:06 Est GFR (MDRD) Af Amer > 60 (>60) 07/01/18 04:06 Est GFR (MDRD) Non-Af > 60 (>60) 07/01/18 04:06 Glucose 79 mg/dL (65-99) 07/01/18 04:06 Calcium 7.8 mg/dL (8.5-10.1) L 07/01/18 04:06 Corrected Calcium 8.8 mg/dL (8.5-10.1) 07/01/18 04:06 Total Bilirubin 1.20 mg/dL (0.2-1.0) H 07/01/18 04:06 AST 23 Units/L (15-37) 07/01/18 04:06 ALT 31 Units/L (12-78) 07/01/18 04:06 Alkaline Phosphatase 82 Units/L (46-116) 07/01/18 04:06 Total Protein 6.7 g/dL (6.4-8.2) 07/01/18 04:06 Albumin 2.7 g/dL (3.4-5.0) L 07/01/18 04:06 Globulin 4.0 g/dL (2.5-4.5) 07/01/18 04:06 Albumin/Globulin Ratio 0.7 Ratio (1.1-2.1) L 07/01/18 04:06 Amylase 20 Units/L (25-115) L 06/29/18 14:32 Lipase 109 Units/L (73-393) 06/29/18 14:32 Specimen Type Clean catch urine 06/29/18 15:50 Urine Color Yellow (YELLOW) 06/29/18 15:50 Urine Appearance Clear (CLEAR) 06/29/18 15:50 Urine pH 6.0 (5.0 - 8.0) 06/29/18 15:50 Ur Specific [place] 1.010 (1.000-1.030) 06/29/18 15:50 Urine Protein Negative (NEGATIVE) 06/29/18 15:50 Urine Glucose (UA) Negative (NEGATIVE) 06/29/18 15:50 Urine Ketones 1+ (NEGATIVE) 06/29/18 15:50 Urine Occult Blood Negative (NEGATIVE) 06/29/18 15:50 Urine Nitrite Negative (NEGATIVE) 06/29/18 15:50 Urine Bilirubin Negative (NEGATIVE) 06/29/18 15:50 Urine Urobilinogen Normal (NORMAL) 06/29/18 15:50 Ur Leukocyte Esterase Negative (NEGATIVE) 06/29/18 15:50 Tissue Pathology To follow 07/01/18 10:34 - Plan (1) Cholelithiasis and cholecystitis without obstruction Status: Acute Plan: NPO, PAIN CONTROL. GENTLE HYDRATION, AM LABS, MRCP. SURGICAL CONSULT (2) RUQ abdominal pain Status: Acute Plan: CT abd, Hidascan, Labs (3) Cholecystitis Status: Acute Plan: Hidascanor
--- NOTE | 2018-07-01 16:35 | PCM.PROG ---
Progress Note - Progress Note for Day of Date of Exam: 07/01/18 - Subjective Subjective: 43 WF DIRECT ADMIT FROM DR SALVATORE CALLOWAY OFFICE WITH RUQ PAIN, N/V. PT HAD CT ABD/PELVIS REVEALED findings are concerning for cholecystitis, WITH GALLSTONES PRESENT. PT HAD GB US, AND MRCP W/O OBSTRUCTING GALLSTONE. PT CONTINUES WITH PAIN, NPO, DENIES DIARRHEA. DR LANCASTER CONSULTING FOR CHOLYECYSTECTOMY THIS AM. - Past Medical Family Social History Past Med/Fam/Surg Hx: No changes since H&P Allergies: Allergies No Known Drug Allergies Allergy (Unverified 01/30/17 18:15) - Review of Systems ROS: No change since H&P - Vital Signs and I&O's Vital Signs: Temperature 98.8 F Pulse Rate [Right Brachial] 107 Pulse Rate 103 Respiratory Rate 20 Blood Pressure [Left Arm] 97/69 Blood Pressure [Right Arm] 119/76 Blood Pressure 121/77 O2 Sat by Pulse Oximetry 96 Intake and Output: Intake & Output 06/29/18 06/30/18 07/01/18 07/02/18 11:59 11:59 11:59 11:59 Intake Total 1790 / 1790 5891 / 5891 120 / 120 Output Total 2800 / 2800 Balance 1790 / 1790 3091 / 3091 120 / 120 - Physical Exam Oriented: Normal Eyes: Normal Ear: Normal Nose: Normal Throat: Normal Respiratory: Diminished Cardiovascular: Normal : Normal Auscultation: Bowel Sounds: Normal Tenderness: RUQ Skin: Normal Musculoskeletal: Normal Psychiatric: Normal Mood Description: Calm Affect: Normal Speech Pattern: Clear, Appropriate - Laboratory and Diagnostics Result Diagrams: 07/01/18 04:06 07/01/18 04:06 Labs: Laboratory WBC 9.1 X10^3/uL (3.6-10.0) 07/01/18 04:06 RBC 3.78 X10^6/uL (3.5-5.4) 07/01/18 04:06 Hgb 13.5 g/dL (12.0-16.0) 07/01/18 04:06 Hct 37.4 % (36.0-47.0) 07/01/18 04:06 MCV 98.9 fL (80.0-100.0) 07/01/18 04:06 MCH 35.7 pg (27.0-34.0) H 07/01/18 04:06 MCHC 36.1 g/dL (33.0-35.0) H 07/01/18 04:06 RDW 14.0 % (11.6-16.5) 07/01/18 04:06 Plt Count 215 X10^3/uL (150.0-450.0) 07/01/18 04:06 MPV 8.7 fL (7.4-11.0) 07/01/18 04:06 Neut % (Auto) 67.7 % (42.0-75.0) 07/01/18 04:06 Lymph % (Auto) 18.4 % (21.0-51.0) L 07/01/18 04:06 [place] % (Auto) 11.1 % (0.0-13.0) 07/01/18 04:06 Eos % (Auto) 1.9 % (0.9-2.9) 07/01/18 04:06 Baso % (Auto) 0.9 % (0.2-1.0) 07/01/18 04:06 Neut # (Auto) 6.2 x10^3/uL (2.2-4.8) H 07/01/18 04:06 Lymph # (Auto) 1.7 X10^3/uL (1.3-2.9) 07/01/18 04:06 [place] # (Auto) 1.0 x10^3/uL (0.3-0.8) H 07/01/18 04:06 Eos # (Auto) 0.2 x10^3/uL (0.0-0.2) 07/01/18 04:06 Baso # (Auto) 0.1 X10^3/uL (0.0-0.1) 07/01/18 04:06 Absolute Nucleated RBC 0.1 /100WBC 07/01/18 04:06 INR Target Range - 06/29/18 14:32 INR 1.18 (0.8-1.3) 06/29/18 14:32 APTT 38.5 SECONDS (22.9-36.5) H 06/29/18 14:32 PTT Comment - 06/29/18 14:32 Sodium 138 mmol/L (136-145) 07/01/18 04:06 Corrected Sodium TNP 07/01/18 04:06 Potassium 3.8 mmol/L (3.5-5.1) 07/01/18 04:06 Chloride 102 mmol/L (98-107) 07/01/18 04:06 Carbon Dioxide 24.7 mmol/L (21-32) 07/01/18 04:06 BUN 5 mg/dL (7-18) L 07/01/18 04:06 Creatinine 0.48 mg/dL (0.55-1.02) L 07/01/18 04:06 Est GFR (MDRD) Af Amer > 60 (>60) 07/01/18 04:06 Est GFR (MDRD) Non-Af > 60 (>60) 07/01/18 04:06 Glucose 79 mg/dL (65-99) 07/01/18 04:06 Calcium 7.8 mg/dL (8.5-10.1) L 07/01/18 04:06 Corrected Calcium 8.8 mg/dL (8.5-10.1) 07/01/18 04:06 Total Bilirubin 1.20 mg/dL (0.2-1.0) H 07/01/18 04:06 AST 23 Units/L (15-37) 07/01/18 04:06 ALT 31 Units/L (12-78) 07/01/18 04:06 Alkaline Phosphatase 82 Units/L (46-116) 07/01/18 04:06 Total Protein 6.7 g/dL (6.4-8.2) 07/01/18 04:06 Albumin 2.7 g/dL (3.4-5.0) L 07/01/18 04:06 Globulin 4.0 g/dL (2.5-4.5) 07/01/18 04:06 Albumin/Globulin Ratio 0.7 Ratio (1.1-2.1) L 07/01/18 04:06 Amylase 20 Units/L (25-115) L 06/29/18 14:32 Lipase 109 Units/L (73-393) 06/29/18 14:32 Specimen Type Clean catch urine 06/29/18 15:50 Urine Color Yellow (YELLOW) 06/29/18 15:50 Urine Appearance Clear (CLEAR) 06/29/18 15:50 Urine pH 6.0 (5.0 - 8.0) 06/29/18 15:50 Ur Specific [place] 1.010 (1.000-1.030) 06/29/18 15:50 Urine Protein Negative (NEGATIVE) 06/29/18 15:50 Urine Glucose (UA) Negative (NEGATIVE) 06/29/18 15:50 Urine Ketones 1+ (NEGATIVE) 06/29/18 15:50 Urine Occult Blood Negative (NEGATIVE) 06/29/18 15:50 Urine Nitrite Negative (NEGATIVE) 06/29/18 15:50 Urine Bilirubin Negative (NEGATIVE) 06/29/18 15:50 Urine Urobilinogen Normal (NORMAL) 06/29/18 15:50 Ur Leukocyte Esterase Negative (NEGATIVE) 06/29/18 15:50 Tissue Pathology To follow 07/01/18 10:34 - Plan (1) Cholelithiasis and cholecystitis without obstruction Status: Acute Plan: NPO, PAIN CONTROL. GENTLE HYDRATION, AM LABS, MRCP RESULT W/O OBSTRUCTI ON. SURGICAL CONSULT (2) RUQ abdominal pain Status: Acute Plan: CT abd, [place], Labs (3) Cholecystitis Status: Acute Plan: Hidascanor
[2018-07-01] MEDS: PHENERGAN INJ 25 MG IVP PRN (21:55)
[2018-07-02] MEDS: DILAUDID INJ IVP PRN ×8 (00:43→22:40)
[2018-07-02] MEDS: NS 1000 ML 1,000 ML IV SCH ×5 (02:30→20:49)
[2018-07-02] MEDS: PHENERGAN INJ 25 MG IVP PRN ×3 (03:36→19:22)
[2018-07-02 05:22] LABS: BASOPHILS # (AUTO) 0.1 X10^3/uL (0.0-0.1); BASOPHILS % (AUTO) 1.1 % (0.2-1.0); EOSINOPHILS # (AUTO) 0.2 x10^3/uL (0.0-0.2); EOSINOPHILS % (AUTO) 1.6 % (0.9-2.9); HEMATOCRIT 35.9 % (36.0-47.0); HEMOGLOBIN 12.6 g/dL (12.0-16.0); LYMPHOCYTES # (AUTO) 1.6 X10^3/uL (1.3-2.9); LYMPHOCYTES % (AUTO) 13.2 % (21.0-51.0); MEAN CORPUSCULAR HEMOGLOBIN 34.8 pg (27.0-34.0); MEAN CORPUSCULAR HGB CONC 35.2 g/dL (33.0-35.0); MEAN CORPUSCULAR VOLUME 98.8 fL (80.0-100.0); MEAN PLATELET VOLUME 8.5 fL (7.4-11.0); MONOCYTES # (AUTO) 1.2 x10^3/uL (0.3-0.8); MONOCYTES % (AUTO) 9.9 % (0.0-13.0); NEUTROPHILS % (AUTO) 74.2 % (42.0-75.0); PLATELET COUNT 223 X10^3/uL (150.0-450.0); RED BLOOD COUNT 3.63 X10^6/uL (3.5-5.4); RED CELL DISTRIBUTION WIDTH 14.4 % (11.6-16.5); WHITE BLOOD COUNT 12.1 X10^3/uL (3.6-10.0)
[2018-07-02 05:26] LABS: BLOOD UREA NITROGEN 3 mg/dL (7-18); CALCIUM 7.5 mg/dL (8.5-10.1); CARBON DIOXIDE 25.3 mmol/L (21-32); CHLORIDE 101 mmol/L (98-107); CREATININE 0.56 mg/dL (0.55-1.02); SODIUM 137 mmol/L (136-145); eGFR NON BLACK RACES > 60 (>60)
[2018-07-02] MEDS: LASIX PO SCH (08:24)
[2018-07-02] MEDS: LOVAZA PO SCH (08:24)
[2018-07-02] MEDS: ALDACTONE TAB 25 MG PO SCH (08:24)
[2018-07-02 08:25] LABS: ALBUMIN 2.5 g/dL (3.4-5.0); BILIRUBIN,DIRECT 0.9 mg/dL (0-0.2); TOTAL PROTEIN 5.9 g/dL (6.4-8.2)
[2018-07-02] MEDS: ATIVAN TAB 0.5 MG PO PRN (08:25)
[2018-07-02] MEDS: PROTONIX INJ 40 MG VIAL IVP SCH (08:25)
[2018-07-02] MEDS: ZyrTEC TAB 10 MG PO SCH (08:25)
[2018-07-02] MEDS ORDERED: SUPRANE IN ONE (15:17)
[2018-07-02] MEDS ORDERED: NEOSTIGMINE INJ ONE (15:17)
[2018-07-02] MEDS ORDERED: VERSED ONE (15:17)
[2018-07-02] MEDS ORDERED: TORADOL 30 MG VIAL ONE (15:17)
[2018-07-02] MEDS ORDERED: FENTANYL INJ 250 mcg ONE (15:17)
[2018-07-02] MEDS ORDERED: NORCURON INJ 10 MG VIAL ONE (15:17)
[2018-07-02] MEDS ORDERED: DIPRIVAN VIAL ONE (15:17)
[2018-07-02] MEDS ORDERED: QUELICIN (OR ANECTINE) ONE (15:17)
[2018-07-02] MEDS ORDERED: ROBINUL ONE (15:17)
[2018-07-02] MEDS ORDERED: ZOFRAN INJ 4 MG VIAL ONE (15:17)
[2018-07-02] MEDS ORDERED: COLACE CAP 100 MG PO SCH (21:00)
[2018-07-02] MEDS ORDERED: MILK OF MAGNESIA PO SCH (21:00)
[2018-07-03] MEDS: NS 1000 ML 1,000 ML IV SCH ×2 (01:46→09:06)
[2018-07-03] MEDS: DILAUDID INJ IVP PRN ×4 (01:47→12:18)
[2018-07-03] MEDS: PHENERGAN INJ 25 MG IVP PRN (01:47)
[2018-07-03 06:33] LABS: BASOPHILS # (AUTO) 0.1 X10^3/uL (0.0-0.1); BASOPHILS % (AUTO) 0.9 % (0.2-1.0); EOSINOPHILS # (AUTO) 0.2 x10^3/uL (0.0-0.2); EOSINOPHILS % (AUTO) 1.8 % (0.9-2.9); HEMATOCRIT 32.5 % (36.0-47.0); HEMOGLOBIN 11.8 g/dL (12.0-16.0); LYMPHOCYTES # (AUTO) 1.5 X10^3/uL (1.3-2.9); LYMPHOCYTES % (AUTO) 17.8 % (21.0-51.0); MEAN CORPUSCULAR HEMOGLOBIN 35.4 pg (27.0-34.0); MEAN CORPUSCULAR HGB CONC 36.2 g/dL (33.0-35.0); MEAN CORPUSCULAR VOLUME 97.7 fL (80.0-100.0); MEAN PLATELET VOLUME 8.6 fL (7.4-11.0); MONOCYTES # (AUTO) 0.9 x10^3/uL (0.3-0.8); MONOCYTES % (AUTO) 10.5 % (0.0-13.0); NEUTROPHILS # (AUTO) 5.8 x10^3/uL (2.2-4.8); PLATELET COUNT 224 X10^3/uL (150.0-450.0); RED BLOOD COUNT 3.32 X10^6/uL (3.5-5.4); WHITE BLOOD COUNT 8.4 X10^3/uL (3.6-10.0)
[2018-07-03 06:49] LABS: ALANINE AMINOTRANSFERASE 29 Units/L (12-78); ALBUMIN 2.3 g/dL (3.4-5.0); ALKALINE PHOSPHATASE 94 Units/L (46-116); ASPARTATE AMINO TRANSFERASE 32 Units/L (15-37); BLOOD UREA NITROGEN 2 mg/dL (7-18); CALCIUM 7.4 mg/dL (8.5-10.1); CARBON DIOXIDE 28.7 mmol/L (21-32); CHLORIDE 102 mmol/L (98-107); COR CA(FOR HYPOALB) 8.8 mg/dL (8.5-10.1); CREATININE 0.43 mg/dL (0.55-1.02); SODIUM 140 mmol/L (136-145); TOTAL PROTEIN 5.8 g/dL (6.4-8.2); eGFR NON BLACK RACES > 60 (>60)
[2018-07-03 08:14] VITALS: BP 103/62
[2018-07-03] MEDS: LASIX PO SCH (08:18)
[2018-07-03] MEDS: LOVAZA PO SCH (08:18)
[2018-07-03] MEDS: PROTONIX INJ 40 MG VIAL IVP SCH (08:18)
[2018-07-03] MEDS: ALDACTONE TAB 25 MG PO SCH (08:18)
[2018-07-03] MEDS: ZyrTEC TAB 10 MG PO SCH (08:19)
[2018-07-03] MEDS ORDERED: FENTANYL INJ 250 mcg ONE (09:13)
[2018-07-03] MEDS ORDERED: QUELICIN (OR ANECTINE) ONE (09:13)
[2018-07-03] MEDS ORDERED: NEOSTIGMINE INJ ONE (09:13)
[2018-07-03] MEDS ORDERED: VERSED ONE (09:13)
[2018-07-03] MEDS ORDERED: DIPRIVAN VIAL ONE (09:13)
[2018-07-03] MEDS ORDERED: TORADOL 30 MG VIAL ONE (09:13)
[2018-07-03] MEDS ORDERED: SUPRANE IN ONE (09:13)
[2018-07-03] MEDS ORDERED: ROBINUL ONE (09:13)
[2018-07-03] MEDS ORDERED: NORCURON INJ 10 MG VIAL ONE (09:13)
[2018-07-03] MEDS ORDERED: ZOFRAN INJ 4 MG VIAL ONE (09:13)
== END 2018-07-03 12:55 | disposition home or self-care (01) | DRG 418 ==
LOC: MED/SURG
PROVIDERS: ADMIT Internal Medicine; ATTEND Internal Medicine
DX: K80.00 Calculus of gallbladder with acute cholecystitis without obstruction; R11.2 Nausea with vomiting, unspecified; K72.90 Hepatic failure, unspecified without coma; K90.49 Malabsorption due to intolerance, not elsewhere classified; F41.8 Other specified anxiety disorders; R10.11 Right upper quadrant pain; K76.0 Fatty (change of) liver, not elsewhere classified
CPT/HCPCS: 36415; 74176; 74181; 76705; 80048; 80053; 80076; 81003; 82150; 83690; 85025; 85610; 85730; 94760; 97110; 97116; 97162; 97165; A4216; A4222; C9113; Q0169; S0028; G0378; J0330; J0690; J1170; J1885; J2175; J2250; J2270; J2405; J2550; J2704; J2710; J3010; J3490; J7030; J7120